=== PATIENT | female | born 1965 | race Two or more races ===

== ENCOUNTER 2020-05-08 08:46 | Outpatient (CLI) | payer OTHER ==
[~2020-05-08 08:46] MED LIST: ASA81 MG PO; LIRICA
== END 2020-05-08 08:56 | disposition home or self-care (01) ==
LOC: TOM 08:46
PROVIDERS: ATTEND General Practice
DX: G44.209 Tension-type headache, unspecified, not intractable (principal)

== ENCOUNTER → 2021-02-19 | Outpatient (CLI) | payer OTHER | END | disposition home or self-care (01) | LOC: RAD 09:02 | PROVIDERS: ATTEND Internal Medicine | DX: I87.2 Venous insufficiency (chronic) (peripheral) (principal); E78.2 Mixed hyperlipidemia; J30.89 Other allergic rhinitis; K21.9 Gastro-esophageal reflux disease without esophagitis; K29.40 Chronic atrophic gastritis without bleeding; N89.8 Other specified noninflammatory disorders of vagina; D70.8 Other neutropenia; M85.89 Other specified disorders of bone density and structure, multiple sites; Q07.00 Arnold-Chiari syndrome without spina bifida or hydrocephalus; N60.21 Fibroadenosis of right breast; N60.22 Fibroadenosis of left breast; Z68.27 Body mass index [BMI] 27.0-27.9, adult; R06.09 Other forms of dyspnea; R05 Cough ==